=== PATIENT | male | born 1960 | race Caucasian/White ===

== ENCOUNTER 2022-01-02 09:58 | Outpatient (CLI) | payer OTHER, SELFPAY ==
[2022-01-02 11:32] LABS: Albumin* 4.4 g/dL (3.3-5.0); Chloride* 104 mmol/L (96-114); Potassium* 4.8 mmol/L (3.6-5.1); Sodium* 138 mmol/L (135-149)
[2022-01-02 11:34] LABS: Carbon Dioxide* 26 mmol/L (20-32); Cholesterol* 211 mg/dL (90-199); Creatinine* 0.9 mg/dL (0.5-1.5); Estimated Glomerular Filt Rate 98 ml/min
[2022-01-02 11:35] LABS: Alanine Aminotransferase* 25 U/L (4-50); Alkaline Phosphatase* 72 U/L (40-150); Aspartate Amino Transferase* 26 U/L (12-35); Bilirubin Total* 0.5 mg/dL (0.1-1.5); Blood Urea Nitrogen* 15 mg/dL (7-30); Calcium* 9.5 mg/dL (8.4-10.6); Glucose* 102 mg/dL (60-115); HDL Cholesterol* 76 mg/dL (>=40); LDL Cholesterol Calculated 115 mg/dL (<100); Triglycerides* 98 mg/dL (40-149)
[2022-01-02 12:06] LABS: PSA Screen* 1.94 ng/mL (0.10-4.00)
== END 2022-01-02 09:59 | disposition home or self-care (01) ==
PROVIDERS: PCP Internal Medicine; Visit Provider Internal Medicine
DX: Z13.6 Encounter for screening for cardiovascular disorders (principal); Z13.1 Encounter for screening for diabetes mellitus; Z13.9 Encounter for screening, unspecified
CPT/HCPCS: 80053; 80061; 84153

== ENCOUNTER 2022-01-10 06:11 | Outpatient (CLI) | payer OTHER, SELFPAY ==
--- NOTE | 2022-01-10 07:29 | W.ANESCHARGE ---
Anesthesia Charges Start Date/Time Anesthesia Start Date: 01/10/22 Anesthesia Start Time: 07:00 Stop Date/Time Anesthesia Stop Date: 01/10/22 Anesthesia Stop Time: 07:25 Summary Emergency: No
--- NOTE | 2022-01-10 08:47 | W.ANESCHARGE ---
Anesthesia Charges Start Date/Time Anesthesia Start Date: 01/10/22 Anesthesia Start Time: 07:00 Stop Date/Time Anesthesia Stop Date: 01/10/22 Anesthesia Stop Time: 07:25 Summary Emergency: No
== END 2022-01-10 06:12 | disposition home or self-care (01) ==
PROVIDERS: PCP Internal Medicine; Visit Provider Internal Medicine
DX: Z12.11 Encounter for screening for malignant neoplasm of colon (principal); K63.5 Polyp of colon
CPT/HCPCS: 00811; 45385; 88305; J2704

== ENCOUNTER 2022-12-20 20:07 | Emergency (ER) | payer OTHER, SELFPAY ==
[2022-12-20] VITALS (28 sets, daily range): BP systolic 122–166; BP diastolic 83–105; PULSE 62–104; RESP 18; TEMP 36.7; O2SAT 93–99
--- NOTE | 2022-12-20 20:34 | CRLHL7_ITS ---
For Patients: As a result of the Cures Act, medical imaging exams and procedure reports are released immediately into your electronic medical record. You may view this report before your referring provider. If you have questions, please contact your health care provider. INDICATION: Chest pain TECHNIQUE: Chest radiograph 2 views COMPARISON: 08/18/2019 FINDINGS: Mediastinum: The mediastinum is normal in appearance. The heart silhouette is normal in size and morphology. Lung: There is a 1 cm nodule in the right lung base without interval change and may be due to a calcified granuloma. No sign of pleural effusion seen. No pneumothorax is identified. Bone and Soft tissue: Unremarkable for age. IMPRESSION: 1. No acute cardiopulmonary disease is seen. Dictated by Solitario Browning MD @ 12/20/2022 9:12:35 PM Dictated by: Solitario Browning MD @ 12/20/2022 21:13:03 (Electronically Signed)
--- NOTE | 2022-12-20 20:38 | ED.GENADULT ---
HPI - General Adult General Chief complaint: Chest Pain Stated complaint: Chest discomfort, irregular heartbeat Time Seen by Provider: 12/20/22 20:38 History of Present Illness HPI narrative: Strange sensation in his chest, when listening to his stethoscope , he could hear an irregular heartbeat. Been happening the past 3-4 hours. Has had lightheadedness when he stands up. 62-year-old man presenting to the emergency department with a number of concerns. He has been meaning to get in to see his primary he says. Final straw appears to be today over the last few hours has been sense seeing a irregular heartbeat. Feels like a tapping his chest maybe. Assisting with stethoscope he was able to auscultate that irregularity as well. For few weeks is also been feeling lightheaded when he goes to stand up. He is not short of breath at rest necessarily. Also over the last few weeks maybe a month has been having a discomfort that is reproducible in his anterior left chest. Is also history of dysphonia which was diagnosed quite sometime ago incidentally. For many months has also been having a sensation of needing to take a quick deep breath. Can happen a few times an hour or maybe few times a day. It is ?sporadic?. Otherwise does not have a sense of air hunger. Does endorse himself to be anxious person. Also has acid reflux. In further conversation admits he has pretty bad diet. Is concerned about cholesterol. Notes that sister had atrial fibrillation. Related Data Home Medications Medication Instructions Recorded Confirmed betamethasone dipropionate 0.05 % 1 topical BID 09/04/21 02/27/22 topical ointment Previous Rx's Medication Instructions Recorded azithromycin 250 mg tablet See Rx Instructions PO .COMPLEX #6 02/27/22 tabs albuterol sulfate 90 mcg/actuation 2 puff inhalation QID PRN Asthma 10/03/22 aerosol inhaler #6.7 grams fluticasone 250 mcg-salmeterol 50 1 inh inhalation BID Asthma #60 ea 10/03/22 mcg/dose blistr powdr for inhalation Allergies Allergy/AdvReac Type Severity Reaction Status Date / Time penicillin V Allergy Severe Hives Verified 02/27/22 12:45 Review of Systems Status of ROS: Reports: 6 or more systems reviewed and unremarkable except as noted in History and below [facility] Medical History Preoperative evaluation of a medical condition to rule out surgical contraindications (TAR required) ?Z01.818 - Encounter for other preprocedural examination (ICD-10) Screening due ?Z13.9 - Encounter for screening, unspecified (ICD-10) Asthma ?J45.909 - Unspecified asthma, uncomplicated (ICD-10) Dysphonia ?R49.0 - Dysphonia (ICD-10) Cervical radiculopathy ?M54.12 - Radiculopathy, cervical region (ICD-10) Surgical History Status post cervical spinal arthrodesis ?Z98.1 - Arthrodesis status (ICD-10) Social History Smoking Status: Never smoker Little interest or pleasure in doing things: not at all Feeling down, depressed, or hopeless: several days Exam Narrative: Exam Narrative: Is pleasant. Speaking easily. Slightly harsh quality to his voice. I do not hear any stridor. Seems to be breathing easily. Well-perfused peripherally and without edema. Lungs appear to be clear. Heart in a regular rate and rhythm. No murmur. Little distant though. Abdomen is soft the. Little discomfort to palpation of the anterior left chest. Skin is warm and dry without inflammatory changes Const: Vital Signs, click to edit/add: Vital Signs - 24 hr 12/20/22 20:17 12/20/22 20:18 12/20/22 20:26 Temperature 98.0 F Pulse Rate 104 H Pulse Rate [Left P ulse Oximeter] 77 Pulse Rate [orthos tatic lying Right Pulse Oximeter] Pulse Rate [orthos tatic sitting Righ t Pulse Oximeter] Pulse Rate [orthos tatic standing Rig ht Pulse Oximeter] Respiratory Rate 18 Blood Pressure Blood Pressure [Ri ght Upper Arm] 166/94 H Blood Pressure [or thostatic lying Ri ght Arm] Blood Pressure [or thostatic sitting Right Arm] Blood Pressure [or thostatic standing Right Arm] Pulse Oximetry 98 99 93 Oxygen Delivery Me thod Room Air 12/20/22 20:39 12/20/22 20:45 12/20/22 20:51 Temperature Pulse Rate 70 74 Pulse Rate [Left P ulse Oximeter] Pulse Rate [orthos tatic lying Right Pulse Oximeter] Pulse Rate [orthos tatic sitting Righ t Pulse Oximeter] Pulse Rate [orthos tatic standing Rig ht Pulse Oximeter] Respiratory Rate Blood Pressure Blood Pressure [Ri ght Upper Arm] Blood Pressure [or thostatic lying Ri ght Arm] Blood Pressure [or thostatic sitting Right Arm] Blood Pressure [or thostatic standing Right Arm] Pulse Oximetry 97 98 98 Oxygen Delivery Me thod 12/20/22 20:56 12/20/22 21:00 12/20/22 21:02 Temperature Pulse Rate 67 67 66 Pulse Rate [Left P ulse Oximeter] Pulse Rate [orthos tatic lying Right Pulse Oximeter] Pulse Rate [orthos tatic sitting Righ t Pulse Oximeter] Pulse Rate [orthos tatic standing Rig ht Pulse Oximeter] Respiratory Rate Blood Pressure 145/89 H 137/96 H Blood Pressure [Ri ght Upper Arm] Blood Pressure [or thostatic lying Ri ght Arm] Blood Pressure [or thostatic sitting Right Arm] Blood Pressure [or thostatic standing Right Arm] Pulse Oximetry 97 96 96 Oxygen Delivery Me thod 12/20/22 21:15 12/20/22 21:17 12/20/22 21:19 Temperature Pulse Rate 68 65 Pulse Rate [Left P ulse Oximeter] Pulse Rate [orthos tatic lying Right Pulse Oximeter] 62 Pulse Rate [orthos tatic sitting Righ t Pulse Oximeter] 66 Pulse Rate [orthos tatic standing Rig ht Pulse Oximeter] 68 Respiratory Rate Blood Pressure 135/93 H Blood Pressure [Ri ght Upper Arm] Blood Pressure [or thostatic lying Ri ght Arm] 135/93 H Blood Pressure [or thostatic sitting Right Arm] 154/105 H Blood Pressure [or thostatic standing Right Arm] 140/100 H Pulse Oximetry 96 97 Oxygen Delivery Me thod 12/20/22 21:30 12/20/22 21:32 Temperature Pulse Rate 66 68 Pulse Rate [Left P ulse Oximeter] Pulse Rate [orthos tatic lying Right Pulse Oximeter] Pulse Rate [orthos tatic sitting Righ t Pulse Oximeter] Pulse Rate [orthos tatic standing Rig ht Pulse Oximeter] Respiratory Rate Blood Pressure 128/96 H Blood Pressure [Ri ght Upper Arm] Blood Pressure [or thostatic lying Ri ght Arm] Blood Pressure [or thostatic sitting Right Arm] Blood Pressure [or thostatic standing Right Arm] Pulse Oximetry 96 97 Oxygen Delivery Me thod Documenting provider has reviewed patient's vital signs: yes Course Vital Signs Vital signs: Initial Vital Signs Respiratory Effort Normal 12/20/22 20:17 Respiratory Depth Normal 12/20/22 20:17 Respiratory Pattern Normal 12/20/22 20:17 Pulse Oximetry 98 12/20/22 20:17 Vital Signs Pulse Oximetry 98 12/20/22 20:17 Temperature 98.0 F 12/20/22 20:18 Pulse Rate 68 12/20/22 23:02 Respiratory Rate 18 12/20/22 20:18 Blood Pressure 146/89 H 12/20/22 23:02 Pulse Oximetry 97 12/20/22 23:02 Oxygen Delivery Method Room Air 12/20/22 20:18 Medical Decision Making MDM Narrative Medical decision making narrative: I think PVCs likely the explanation for these irregular beats in the sensation of tapping that he is feeling. Will do orthostatics. This might explain his lightheadedness when he goes to stand. Do not hear any wheeze of asthma could be in differential given his former diagnoses. Heart failure, dysrhythmia. Unlikely ischemic heart disease otherwise; or least not acute. Anemia? Doubtful. Chest x-ray beneficial to assess pneumothorax or cardiac silhouette perhaps. On monitor demonstrating symptomatic PVCs. Orthostatics were normal. Labs are reassuring including normal D-dimer. Symptoms persisted but perhaps less. Vitally well during time of observation in the emergency department. Answered questions by patient and significant other. See patient discharge plan Medical Records Medical records reviewed: Yes I reviewed the patient's medical records Lab Data Lab results reviewed: Yes I reviewed the patient's lab results Labs: Lab Results 12/20/22 12/20/22 Range/Units 20:46 20:50 WBC 7.20 (4.50-11.00) K/uL RBC 4.82 (4.30-5.90) m/uL Hgb 15.1 (13.5-17.5) gm/dL Hct 44.6 (37.0-53.0) % MCV 93 (80-100) fL MCH 31 (26-34) pg MCHC 34 (32-36) gm/dL RDW Coeff of Frantz 11.9 (11.5-15.5) % Plt Count 257 (140-440) K/uL Neut % (Auto) 53.2 (42.0-72.0) % Lymph % (Auto) 31.3 (20-44) % [place] % (Auto) 8.3 (0.0-11.0) % Eos % (Auto) 6.1 (0.0-7.0) % Baso % (Auto) 1.0 (0.0-3.0) % Neut # (Auto) 3.83 (1.7-7.0) K/uL Lymph # (Auto) 2.25 (0.90-2.90) K/uL [place] # (Auto) 0.60 (0.00-0.90) K/UL Eos # (Auto) 0.44 (0.00-0.50) K/uL Baso # (Auto) 0.07 (0.00-0.30) K/uL Abs Immat Gran (auto) 0.01 (0.00-0.30) K/uL Imm/Tot Granulo (auto) 0.1 % D-Dimer Quant (PE/DVT) < 0.27 (0.00-0.50) ug/ml Magnesium 2.0 (1.5-2.6) mg/dL Troponin I < 0.01 L (0.01-0.04) ng/mL NT-Pro-B Natriuret Pep 147 pg/mL TSH 2.070 (0.270-4.20) uIU/mL POC Troponin I 0.00 L (0.01-0.04) ng/ml ECG Data Attestation: I personally reviewed and interpreted this ECG as follows: (Sinus rhythm. There is a PVC. Rate of 76) Discharge Plan Discharge Clinical Impression: Frequent unifocal PVCs, Chest wall pain Patient Disposition: Home w/ Parent or Adult Condition: Stable Additional Instructions: I just want to offer reassurance regarding these premature ventricular contractions. If they seem to be occurring more frequently making you feel worse, we would consider further evaluation and potential treatment. Another option for your heartburn might be [id number] famotidine. This can be used as needed. Orthostatic measurements were normal. Focus on hydration. Try to drink 2-3 L of water a day. Try to get in heart pumping exercise daily. Try for quality and regular sleep. Return for worsening and persistent lightheadedness, shortness of breath, persistent and increasing chest pain. That Triscut and cheese comment has made me hungry. Activity Level: No Restrictions Discharge Diet: Regular Prescriptions: No Action betamethasone dipropionate 0.05 % ointment 1 topical BID Rx Instructions: Apply ointment 2 times a day, cover with moisturizer for 2 weeks then use 2 times a day, on Sat. and Sun. only. azithromycin 250 mg tablet See Rx Instructions PO .COMPLEX Qty: 6 0RF Rx Instructions: For 250 mg dose pack: take 500 mg today (day 1), then 250 mg for 4 days (days 2-5) PO fluticasone propion-salmeterol 250-50 mcg/dose blister with device 1 inh inhalation BID Qty: 60 2RF albuterol sulfate 90 mcg/actuation HFA aerosol inhaler 2 puff inhalation QID PRN (Reason: Asthma) Qty: 6.7 2RF Follow Up/Referrals: Aamir Bravo MD [Primary Care Provider] - Stand Alone Forms: Nasseoth Info Instructions
[2022-12-20 20:57] LABS: Basophils Absolute Auto 0.07 K/uL (0.00-0.30); Eosinophils Absolute Auto 0.44 K/uL (0.00-0.50); Eosinophils Percent Auto 6.1 % (0.0-7.0); Hematocrit 44.6 % (37.0-53.0); Hemoglobin* 15.1 gm/dL (13.5-17.5); Immature Granulocytes Abs Auto 0.01 K/uL (0.00-0.30); Immature Granulocytes Pct Auto 0.1 %; Lymphocytes Absolute Auto 2.25 K/uL (0.90-2.90); Lymphocytes Percent Auto 31.3 % (20-44); Mean Corpuscular HGB Conc 34 gm/dL (32-36); Mean Corpuscular Hemoglobin 31 pg (26-34); Mean Corpuscular Volume 93 fL (80-100); Monocytes Percent Auto 8.3 % (0.0-11.0); Neutrophils Absolute Auto 3.83 K/uL (1.7-7.0); Neutrophils Percent Auto 53.2 % (42.0-72.0); Platelet Count* 257 K/uL (140-440); RDW Coefficient of Variation % 11.9 % (11.5-15.5); Red Blood Count 4.82 m/uL (4.30-5.90)
[2022-12-20 21:00] LABS: Slide Review Reflex No
[2022-12-20 21:23] LABS: D Dimer Quantitative* < 0.27 ug/ml (0.00-0.50)
[2022-12-20 21:48] LABS: NT Pro B Type NatriureticPept* 147 pg/mL
[2022-12-20 22:14] LABS: Troponin I* < 0.01 ng/mL (0.01-0.04)
== END 2022-12-20 23:12 | disposition home or self-care (01) ==
PROVIDERS: Emergency Provider Family Medicine; PCP Internal Medicine
DX: R07.89 Other chest pain (principal); I49.3 Ventricular premature depolarization
CPT/HCPCS: 36415; 71046; 83735; 83880; 84443; 84484; 85025; 85379; 93005; 94761; 99284

== ENCOUNTER 2023-01-06 08:47 | Outpatient (CLI) | payer OTHER, SELFPAY | END 2023-01-06 08:48 | disposition home or self-care (01) | LOC: NFLDREF 22:49 | PROVIDERS: PCP Internal Medicine; Referring Provider Internal Medicine; Visit Provider Internal Medicine | DX: Z00.00 Encounter for general adult medical examination without abnormal findings (principal); I10 Essential (primary) hypertension; R79.89 Other specified abnormal findings of blood chemistry; R97.20 Elevated prostate specific antigen [PSA]; Z13.6 Encounter for screening for cardiovascular disorders | CPT/HCPCS: 80053; 80061; 84153 ==

== ENCOUNTER 2023-02-06 08:06 | Outpatient (CLI) | payer OTHER, SELFPAY | END 2023-02-06 08:07 | disposition home or self-care (01) | LOC: NFLDREF 14:19 | PROVIDERS: PCP Internal Medicine; Referring Provider Internal Medicine; Visit Provider Internal Medicine | DX: Z13.1 Encounter for screening for diabetes mellitus (principal) | CPT/HCPCS: 82947 ==

== ENCOUNTER 2024-01-12 10:44 | Outpatient (CLI) | payer OTHER, SELFPAY ==
--- OUTSIDE RECORDS SUMMARY | 2024-01-12 10:46 | XMS_ITS | Continuity of Care Document ---
Author Organization [facility] Address [address] [place] [address] Phone Care Team Providers Care Railroad Car Letterer Name Role Phone Keshawn Farrell MD Unavailable Unavailable Allergies, Adverse Reactions, Alerts Substance Reaction Status Criticality Penicillins Active No Information Medications Medication Instructions Dosage Effective Dates (start - stop) Status Comments albuterol sulfate HFA 90 mcg/actuation aerosol inhaler - Active QVAR REDIHALER (unknown strength) Not Available - Active DEXTROAMPHETAMINE-AMPH ETAMINE (unknown strength) Not Available - Active Procedures Procedure Date Office/Outpatient Visit,Est, Mod 2021 Office/Outpatient Visit,Est, Mod 2020 Office/Outpatient Visit,New, Mod 2020 Advance Directives Directive Yes / No Effective Date File Name No Information Encounters Encounter Description Practice Location Reason(s) For Visit Diagnoses Date Provider Providers Copied on Encounter Office/Outpa tient Visit,Est, Mod [facility], [address], [place], [place], [id number] , [place] tel:[phone] [facility] [place] Carpal tunnel syndrome, bilateral upper limbsOther spondylosis, cervical regionPain in right shoulder 2 Jami Liao. [facility] [place], [address] [place] [address], [address], [id number], [place]. tel:[phone] Referring Provider: Aamir Bravo, [facility] [address] [place], [address]. tel:[phone] Office/Outpa tient Visit,Est, Mod [facility], [address], [place], [place], [id number] , [place] tel:[phone] [facility] Other intervertebral disc displacement, thoracic regionArthrodes is status Jami Liao. [facility], [address], [address], [place], [place], [id number], [place]. tel:[phone] Referring Provider: [facility] [address] [place], [address]. tel:[phone] Office/Outpa tient Visit,New, Mod [facility], [address], [place], [place], [id number] , [place] tel:[phone] [facility] Other spondylosis with radiculopathy, cervical regionArthrodes is status No Information Referring Provider: [facility] [address] [place], [address]. tel:[phone] Family History Family Member Type Diagnosis Age At Onset No Information Payers Payer name Insurance type Covered alliance party ID Jayme mead(jennifer Contreras [facility] [id number] Social History Type Description Quantity Date Captured Comments Alcohol Use Details Unknown Caffeine Use Details Unknown Tobacco Use Status Current non-smoker Smoking Status Never smoker Non-Smoking Tobacco Use Details : No Details Available : No Details Available Sex Male Vital Signs Date / Time: Height Weight BMI Pulse Rate Blood Pressure Temperature Respiratory Rate Body Surface Area Head Circumference Head Circ. Percentile Wt./Theodore. Percentile BMI percentile Pulse Ox Inhaled Ox 1:34 PM 71.00 in 92.079 kg (203.00 lbs) 28.3 1 kg/m eter (2) Chief Complaint And Reason For Visit No Information Reason For Referral Reason For Referral No Information History Of Present Illness Encounter Date Complaint History Of Prese nt Illness No Information Functional Status Date Functional Assessmen t No Information Instructions Date Instruction Additional Infor mation No Information Assessments Type Assessment Date No Information Patient Care Teams Name Effective Dates (start - stop) Status Members No Information
== END 2024-01-12 10:45 | disposition home or self-care (01) ==
PROVIDERS: PCP Internal Medicine; Visit Provider Internal Medicine
DX: Z00.00 Encounter for general adult medical examination without abnormal findings (principal); I10 Essential (primary) hypertension; R79.89 Other specified abnormal findings of blood chemistry; J45.909 Unspecified asthma, uncomplicated; Z12.5 Encounter for screening for malignant neoplasm of prostate
CPT/HCPCS: 80053; 80061; G0103

== ENCOUNTER 2024-01-18 16:55 | Outpatient (CLI) | payer OTHER, SELFPAY ==
--- OUTSIDE RECORDS SUMMARY | 2024-01-18 16:57 | XMS_ITS | Continuity of Care Document ---
Author Organization [facility] Address [address] [place] [address] Phone Care Team Providers Care Keg Washer Name Role Phone Keshawn Farrell MD Unavailable [...] Visit,Est, Mod [facility], [address], [place], [place], [id number] , [place] tel:[phone] [facility] [place] Carpal tunnel syndrome, bilateral upper limbsOther spondylosis, cervical regionPain in right shoulder 2 Jami Liao. [facility], [address] [place] [address], [address], [id number], [place]. tel:[phone] Referring Provider: Aamir Bravo, [facility] [address] [place], [address]. tel:[phone] Office/Outpa tient Visit,Est, Mod [facility], [address], [place], [place], [id number] , [place] tel:[phone] [facility] Other intervertebral disc displacement, thoracic regionArthrodes is status Jami Liao. [facility], [address], [address], [place], [place], [id number], [place]. tel:[phone] Referring Provider: [facility] [address] [place], [address]. tel:[phone] Office/Outpa tient Visit,New, Mod [facility], [address], [place], [place], [id number] , [place] tel:[phone] [facility] Other spondylosis with radiculopathy, cervical regionArthrodes is status No Information Referring Provider: [facility] [address] [place], [address]. tel:[phone] Family History Family Member Type Diagnosis Age At Onset No Information Payers Payer name Insurance type Covered constitution party ID Jayme mead(jennifer Contreras [facility] [id number] Social History Type Description Quantity Date Captured [...]
--- NOTE | 2024-01-18 17:30 | CRLHL7_ITS ---
For Patients: As a result of the Century Cures Act, medical imaging exams and procedure reports are released immediately into your electronic medical record. You may view this report before your referring provider. If you have questions, please contact your health care provider. INDICATION: 63 year-old male. Abnormal lab values. TECHNIQUE: Right upper quadrant ultrasound. FINDINGS: The pancreas is normal where seen. The tail is obscured by bowel gas. The liver is normal in overall size without hepatic masses or biliary dilatation. The hepatic echotexture is slightly heterogeneous/coarsened, somewhat nonspecific. The gallbladder is negative for stones or sludge. No gallbladder wall thickening. No pericholecystic fluid. No sonographic Plascecnia`s sign. The gallbladder wall measures 2 mm. The common bile duct measures 3 mm. No right upper quadrant ascites. No hydronephrosis of the right kidney which measures 9.7 x 5.3 x 6.0 cm. The right renal cortex measures 1.6 cm. The proximal, mid, and distal abdominal aorta are of normal caliber measuring 2.6 cm, 2.1 cm, and 1.8 cm respectively. IMPRESSION: 1. Questionable heterogeneous/coarsened hepatic echotexture. 2. The examination is otherwise negative. Dictated by Héctor Stover MD @ 01/19/2024 2:17:35 PM (Electronically Signed)
== END 2024-01-18 16:56 | disposition home or self-care (01) ==
PROVIDERS: PCP Internal Medicine; Visit Provider Internal Medicine
DX: R79.89 Other specified abnormal findings of blood chemistry (principal)
CPT/HCPCS: 76705

== ENCOUNTER 2024-02-02 12:31 | Outpatient (CLI) | payer OTHER, SELFPAY ==
--- OUTSIDE RECORDS SUMMARY | 2024-02-02 12:34 | XMS_ITS | Continuity of Care Document ---
Author Organization [facility] Address [address] [place] [address] Phone Care Team Providers Care Auto Claim Representative Name Role Phone Keshawn Farrell MD Unavailable [...] Visit,Est, Mod [facility], [address], [place], [place], [id number] , [place] tel:[phone] [facility] [place] Carpal tunnel syndrome, bilateral upper limbsOther spondylosis, cervical regionPain in right shoulder 2 Jami Liao. [facility] [place], [facility] [address] [place] [address], [address], [id number], [place]. tel:[phone] Referring Provider: Aamir Bravo, [facility] [address] [place], [address]. tel:[phone] Office/Outpa tient Visit,Est, Mod [facility], [address], [place], [place], [id number] , [place] tel:[phone] [facility] Other intervertebral disc displacement, thoracic regionArthrodes is status Jami Liao. [facility], [address], [address], [place], [place], [id number], [place]. tel:[phone] Referring Provider: [facility] [address] [place], [address]. tel:[phone] Office/Outpa tient Visit,New, Mod [facility], [address], [place], [place], [id number] , [place] tel:[phone] [facility] Other spondylosis with radiculopathy, cervical regionArthrodes is status No Information Referring Provider: [facility] [address] [place], [address]. tel:[phone] Family History Family Member Type Diagnosis Age At Onset No Information Payers Payer name Insurance type Covered democrat ID Jayme mead(jennifer Contreras [facility] [id number] Social History Type Description Quantity Date Captured [...]
--- NOTE | 2024-02-02 13:42 | W.PM.STED ---
Stress Test Note Date Date Seen: 02/02/24 Date of test: 02/02/24 Providers Primary care provider: Aamir Bravo Stress test physician: Lory Bobo Stress Test Note Stress test ordered: Stress Echo Indication for test: Chest pain Stress test medicine: None Results discussion: Resting EKG: Sinus rhythm, 72 beats per minute. Resting blood pressure: 156/104 Stress test: This 63-year-old male is consented on stress test ordered and agrees to proceed with standard Efraín protocol treadmill stress echo. Patient exercised on the treadmill to minutes, stopping due to reaching maximal heart rate and on some shortness of breath at exercise capacity. He had no chest pain, no arrhythmia noted. Patient exercised to 11 minutes, equivocal into 12.1 Mets. He had a maximum heart rate of 180 beats per minute which was 134% of a calculated target heart rate of 134, above a maximal calculated heart rate of 158. He had a maximal blood pressure of 170/104 with a rate pressure product of 29,000 in 70. Patient did flipped his T-waves and did have downsloping ST segment changes during exercise which became more flat during recovery and improving as recovery went on, this was in the inferior and lateral precordial leads. He had no symptoms in the preliminary report on the echo was normal. Need to await Cardiology over reading of the echo images to couple this for a full formal diagnostic. If echo images are normal, likely represents false negative EKG. Impression: Subjectively negative, objectively with EKG changes inferiorly and lateral precordial changes, suspect false positive EKG based on prelim echo images. Follow up suggested: Patient is discharged in stable condition. He will await follow-up report from Dr. Bravo once the non profit director's has read the echo images.
[2024-02-02 14:01] VITALS: BP 152/87; PULSE 114
== END 2024-02-02 12:32 | disposition home or self-care (01) ==
LOC: STRESS 12:31
PROVIDERS: PCP Internal Medicine; Visit Provider Internal Medicine
DX: R07.9 Chest pain, unspecified (principal)
CPT/HCPCS: 93016; 93325; 93351

== ENCOUNTER 2024-04-28 09:02 | Outpatient (CLI) | payer OTHER, SELFPAY | END 2024-04-28 09:03 | disposition home or self-care (01) | LOC: NFLDREF 04-29 09:57 | PROVIDERS: PCP Internal Medicine; Referring Provider Internal Medicine; Visit Provider Internal Medicine | DX: E78.5 Hyperlipidemia, unspecified (principal); R79.89 Other specified abnormal findings of blood chemistry; K75.81 Nonalcoholic steatohepatitis (NASH) | CPT/HCPCS: 80053; 80061 ==

== ENCOUNTER 2024-10-06 08:21 | Outpatient (CLI) | payer OTHER, SELFPAY | END 2024-10-06 08:22 | disposition home or self-care (01) | PROVIDERS: PCP Internal Medicine; Visit Provider Internal Medicine | DX: R63.4 Abnormal weight loss (principal); Z12.5 Encounter for screening for malignant neoplasm of prostate | CPT/HCPCS: 80053; 84443; G0103 ==

== ENCOUNTER 2025-01-18 10:27 | Outpatient (CLI) | payer OTHER, SELFPAY | END 2025-01-18 10:28 | disposition home or self-care (01) | PROVIDERS: PCP Internal Medicine; Visit Provider Internal Medicine | DX: R63.4 Abnormal weight loss (principal); Z68.22 Body mass index [BMI] 22.0-22.9, adult | CPT/HCPCS: 80053; 83735; 84443 ==

== ENCOUNTER 2025-01-24 10:23 | Outpatient (CLI) | payer OTHER, SELFPAY ==
--- NOTE | 2025-01-24 11:00 | CRLHL7_ITS ---
For Patients: As a result of the Century Cures Act, medical imaging exams and procedure reports are released immediately into your electronic medical record. You may view this report before your referring provider. If you have questions, please contact your health care provider. Indication: ABNORMAL WEIGHT LOSS Technique: CT Chest/Abd/Pelvis W/ 76CC [id number] intravenous contrast Please note that all CT scans at this facility use dose modulation, iterative reconstruction, and/or weight-based dosing when appropriate to reduce radiation dose to as low as reasonably achievable. Comparison: CT chest 10/13/2011, ultrasound abdomen 01/18/2024 Findings: In the chest, stable calcified nodule in the right lower lobe. Additional stable tiny nodule right lower lobe, . No additional nodule. No infiltrate or edema. No effusion or pneumothorax. No intrathoracic adenopathy. Visualized thyroid normal. No fracture. No intrinsic osseous lesion. In the abdomen, sub cm cysts are present, as before. No suspicious intrahepatic mass. Focal fat deposition adjacent to the falciform ligament noted. Gallbladder unremarkable. Normal spleen and pancreas. Normal adrenal glands and kidneys. Atherosclerotic disease. No bowel obstruction. No adenopathy. In the pelvis, bladder normal. Prostate unremarkable. No free air or free fluid. No adenopathy. No bowel wall thickening. No fracture. Degenerative joint disease both hips. Impression: No suspicious findings within the chest, abdomen or pelvis. Please note that all CT scans at this facility use dose modulation, iterative reconstruction, and/or weight-based dosing when appropriate to reduce radiation dose to as low as reasonably achievable. Dictated by Sami Mix MD @ 01/24/2025 11:27:12 AM (Electronically Signed)
== END 2025-01-24 10:24 | disposition home or self-care (01) ==
PROVIDERS: PCP Internal Medicine; Visit Provider Internal Medicine
DX: R63.4 Abnormal weight loss (principal)
CPT/HCPCS: 71260; 74177; Q9967